=== PATIENT | male | born 1975 | race African-American/Black ===

== ENCOUNTER 2020-08-11 15:20 | Emergency (ER) | payer BC, OTHER ==
[~2020-08-11] VITALS: Ht 170.2 cm; Wt 90.7 kg
[2020-08-11] MEDS ORDERED: Ketorolac 60mg Inj IM ONE (15:30)
[2020-08-11] MEDS ORDERED: Ketorolac 30mg Inj ONE (15:32)
--- NOTE | 2020-08-11 16:09 | Emergency Room Report ---
History of Present Illness General Chief Complaint: Lower Extremity Injury Source: Patient Present Illness HPI 44-year-old male here with bilateral ankle pain after a mechanical fall. The patient was at a restaurant and he said that the water fountain was leaking water on the floor. He stepped on the pedal with his left foot and said "my left leg went out laterally and I did the splits." He says that he felt inward rotation of his ankles bilaterally. Never fell or hit his head or had loss of consciousness or neck pain. This occurred about 30 minutes prior to coming to the emergency department. He was able to stand up and ambulate after the incident but he said that he had bilateral ankle pain. No other pain. No focal numbness or weakness Allergies: Coded Allergies: No Known Allergies (Unverified , 08/11/20) COVID-19 Screening Contact w/high risk pt: No Experienced COVID-19 symptoms?: No COVID-19 Testing performed SURVEY STATISTICIAN: No Nursing Documentation-[facility] Past Medical History: No Stated History Review of Systems All Other Systems: negative except mentioned in HPI Physical Exam Vital Signs Date Time Temp Pulse Resp B/P (MAP) Pulse Ox O2 Delivery O2 Flow Rate FiO2 08/11/20 15:17 99.0 88 20 170/86 (114) 98 Room Air Sp02 EP Interpretation: reviewed, normal General Appearance: no apparent distress, alert, non-toxic Head: normocephalic, atraumatic Eyes: bilateral eye normal inspection, bilateral eye PERRL ENT: hearing grossly normal, normal pharynx, no angioedema, normal voice Neck: full range of motion, supple/symm/no masses Respiratory: chest non-tender, lungs clear, normal breath sounds, speaking full sentences Cardiovascular #1: regular rate, rhythm, no edema Cardiovascular #2: 2+ carotid (R), 2+ carotid (L), 2+ radial (R), 2+ radial (L), 2+ dorsalis pedis (R), 2+ dorsalis pedis (L) Gastrointestinal: normal bowel sounds, non tender, soft, non-distended, no guarding, no rebound Rectal: deferred Genitourinary: normal inspection, no CVA tenderness Musculoskeletal: back normal, normal range of motion, gait/station normal, other - Subjective pain on range of motion of the bilateral ankles. Subjective tenderness on palpation of the bilateral lateral malleolus. No obvious bone or joint abnormalities. 2+ PT and DP pulses bilaterally. Normal capillary refill Neurologic: alert, motor strength/tone normal, oriented x3, sensory intact, responsive, speech normal Psychiatric: judgement/insight normal, memory normal, mood/affect normal, no suicidal/homicidal ideation Lymphatic: no adenopathy Medical Decision Making Diagnostic Impression: Primary Impression: Ankle sprain ER Course X-ray right knee ankle: Negative X-ray left ankle: Negative X-ray right foot: Normal X-ray left foot: Normal Splint: Dominick wrap bilateral ankles. Patient was neurovascular intact before and after the Dominick wrap was placed. 44-year-old male here with bilateral ankle pain after a slip and fall at a restaurant. Patient was neurovascularly intact with strong pulses and no evidence of acute bony or joint abnormality on examination. X-ray of the bilateral ankles and bilateral feet were unremarkable. Patient was given Toradol with good resolution of his pain. Dominick wrap's were applied to the bilateral ankles as described above. Patient was neurovascular intact before and after the Dominick wrap were placed. We will follow-up with his primary care physician. He was able to ambulate throughout the emergency department without difficulty. Discharged in stable condition. Last Vital Signs Date Time Temp Pulse Resp B/P (MAP) Pulse Ox O2 Delivery O2 Flow Rate FiO2 08/11/20 15:17 99.0 88 20 170/86 (114) 98 Room Air Scripts Methocarbamol* (ROBAXIN-750*) 750 Mg Tablet 750 MG PO TID, #21 TAB 0 Refills Prov: Derek Almanza M.D. 08/11/20 Ibuprofen* (MOTRIN*) 600 Mg Tablet 600 MG ORAL Q6H PRN for FOR PAIN, #20 TAB 0 Refills Prov: Derek Almanza M.D. 08/11/20 Referrals: [facility],REFERRING (PCP) Derek Almanza M.D. Aug 11, 2020 16:09
[2020-08-11] MEDS ORDERED: IBUPROFEN600 M1 ORAL (16:22)
[2020-08-11] MEDS ORDERED: ROBAXIN-750750 MG PO (16:22)
[2020-08-11 17:04] VITALS: BP 165/83
--- NOTE | 2020-08-11 17:22 | Diagnostic Imaging Report ---
Indication: Right foot pain Technique: 3 views right foot Comparison: none Findings: No acute fractures. No dislocations. The joint spaces are preserved Impression: Negative
--- NOTE | 2020-08-11 17:22 | Diagnostic Imaging Report ---
Indication: Left foot pain Technique: 3 views left foot Comparison: none Findings: No acute fractures. No dislocations. The joint spaces are preserved. Impression: Negative
--- NOTE | 2020-08-11 17:23 | Diagnostic Imaging Report ---
Indication: Right ankle pain Technique: 3 views of the right ankle Comparison: none Findings: No acute fractures. No dislocations. The joint spaces are preserved Impression: Negative
--- NOTE | 2020-08-11 17:23 | Diagnostic Imaging Report ---
Indication: Left ankle pain Technique: 3 views of the left ankle Comparison: none Findings: No acute fractures. No dislocations. Joint spaces are preserved Impression: Negative
== END 2020-08-11 17:14 | disposition home or self-care (01) ==
LOC: EDBD 15:20 → EMR 15:47
DX: S93.409A Sprain of unspecified ligament of unspecified ankle, initial encounter (principal); W01.0XXA Fall on same level from slipping, tripping and stumbling without subsequent striking against object, initial encounter; Y92.511 Restaurant or cafe as the place of occurrence of the external cause; M25.572 Pain in left ankle and joints of left foot; M25.571 Pain in right ankle and joints of right foot
CPT/HCPCS: 99284